=== PATIENT | male | born 1995 | race Caucasian/White ===

== ENCOUNTER 2020-04-14 10:14 | Inpatient (IN) | payer MEDICAID ==
[~2020-04-14] VITALS: Ht 172.7 cm; Wt 68.5 kg
[~2020-04-14 10:14] MED LIST: NOCURR
[2020-04-14] MEDS ORDERED: HALOPERIDOL 5 MG TABLET PO PRN (13:15)
[2020-04-14 14:35] VITALS: BP 128/65
[2020-04-14] MEDS: LORazepam 2 MG TABLET PO PRN (20:17)
[2020-04-14] MEDS: OLANZapine 10 MG TABLET PO SCH (20:17)
[2020-04-15 00:50] VITALS: BP 123/56
[2020-04-15 08:21] LABS: BASOPHILS % (AUTO) 0.8 % (0.0-2.0); EOSINOPHILS % (AUTO) 3.1 % (1.0-6.0); HEMATOCRIT 40.4 % (41-53); HEMOGLOBIN 13.5 g/dL (13.5-17.5); LYMPHOCYTES # (AUTO) 2.1 K/uL (1.0-4.8); MEAN CORPUSCULAR HEMOGLOBIN 30.3 pg (26.0-34.0); MEAN CORPUSCULAR HGB CONC 33.5 G/dL (31.0-37.0); MEAN CORPUSCULAR VOLUME 90 fL (80-100); MONOCYTES # (AUTO) 0.7 K/uL (0.1-1.0); MONOCYTES % (AUTO) 12.4 % (2.0-9.0); NEUTROPHILS # (AUTO) 2.6 K/uL (1.8-7.7); NEUTROPHILS % (AUTO) 45.7 % (40.0-70.0); PLATELET COUNT (AUTO) 286 K/uL (150-450); RED BLOOD CELL COUNT(AUTO) 4.47 MIL/uL (4.50-5.90)
[2020-04-15] MEDS ORDERED: ONDANSETRON HCL 4 MG TABLET PO PRN (08:30)
[2020-04-15] MEDS ORDERED: MAG HYDROX/AL HYDROX/SIMETH ES 30 ML SUSPENSION UDCUP PO PRN (08:30)
[2020-04-15] MEDS ORDERED: IBUPROFEN 400 MG TABLET PO PRN (08:30)
[2020-04-15] MEDS ORDERED: LOPERAMIDE HCL 2 MG CAPSULE PO PRN (08:30)
[2020-04-15] MEDS ORDERED: ACETAMINOPHEN 325 MG TABLET PO PRN (08:30)
[2020-04-15] MEDS ORDERED: DOCUSATE SODIUM 100 MG CAPSULE PO PRN (08:30)
[2020-04-15] MEDS ORDERED: ALBUTEROL SULFATE HFA 90 MCG/PUFF 8 GM INHALER IH PRN (08:30)
[2020-04-15] MEDS ORDERED: MAGNESIUM HYDROXIDE SUSPENSION 30 ML UDCUP PO PRN (08:30)
[2020-04-15] MEDS ORDERED: CloNIDine HCL 0.1 MG TABLET PO PRN (08:30)
[2020-04-15] MEDS ORDERED: PETROLATUM,WHITE 28 GM JELLY TP PRN (08:30)
[2020-04-15] MEDS ORDERED: NICOTINE 14 MG/24 HOUR PATCH TD PRN (08:30)
[2020-04-15] MEDS ORDERED: GuaiFENesin/D-METHORPHAN [SUGAR-FREE] 200-20MG/10 ML SYRUP UDCUP PO PRN (08:30)
[2020-04-15 08:31] LABS: HEMOGLOBIN A1C 5.3 % (3.8-5.6)
[2020-04-15 08:36] LABS: ALANINE AMINOTRANSFERASE 24 U/L (12-78); ALBUMIN 3.7 g/dL (3.4-5.0); ALKALINE PHOSPHATASE 55 U/L (46-116); ANION GAP 6 mmol/L (8-16); ASPARTATE AMINOTRANSFERASE 23 U/L (15-37); BILIRUBIN,TOTAL 0.3 mg/dL (0.1-1.0); CARBON DIOXIDE 29 mmol/L (22-29); CHLORIDE 103 mmol/L (98-107); CHOL/HDL RATIO 2.8 (4.2-7.3); CHOLESTEROL 154 mg/dL (131-200); CREATININE 1.01 mg/dL (0.60-1.30); GLOMERULAR FILTR. RATE CALC > 60 mL/min (>60); GLUCOSE,RANDOM 94 mg/dL (70-110); HDL CHOLESTEROL 55 mg/dL (40-60); LDL CHOL (CALC.) 87 mg/dL (0-130); SODIUM SERUM 138 mmol/L (136-145); TOTAL PROTEIN, SERUM 6.7 g/dL (6.4-8.2); TRIGLYCERIDES 58 mg/dL (15-150); UREA NITROGEN, BLOOD 17 mg/dL (7-18)
[2020-04-15 10:28] VITALS: BP 110/60
[2020-04-15] MEDS: OLANZapine 10 MG TABLET PO SCH (21:00)
[2020-04-16] MEDS: OLANZapine 10 MG TABLET PO SCH (20:30)
[2020-04-17 16:00] VITALS: BP 109/74
[2020-04-17] MEDS: OLANZapine 10 MG TABLET PO SCH (21:04)
[2020-04-17] MEDS: ZOLPIDEM TARTRATE 10 MG TABLET PO PRN (21:04)
[2020-04-18] MEDS: OLANZapine 10 MG TABLET PO SCH ×2 (20:36→20:54)
[2020-04-18] MEDS: ZOLPIDEM TARTRATE 10 MG TABLET PO PRN (20:47)
[2020-04-19 06:16] VITALS: BP 112/70
[2020-04-19 08:10] VITALS: BP 112/68
[2020-04-19 16:10] VITALS: BP 116/73
[2020-04-19] MEDS: OLANZapine 10 MG TABLET PO SCH (20:21)
[2020-04-20 00:03] VITALS: BP 110/65
[2020-04-20] MEDS: OLANZapine 10 MG TABLET PO SCH (21:00)
[2020-04-21 08:29] VITALS: BP 117/79
[2020-04-21] MEDS: OLANZapine 10 MG TABLET PO SCH (20:16)
[2020-04-22] MEDS: ZOLPIDEM TARTRATE 10 MG TABLET PO PRN (01:28)
[2020-04-22] MEDS: LORazepam 2 MG TABLET PO PRN (01:28)
[2020-04-22] MEDS: OLANZapine 10 MG TABLET PO SCH (20:26)
[2020-04-23 05:58] VITALS: BP 119/76
[2020-04-23 08:20] VITALS: BP 112/74
[2020-04-23 16:12] VITALS: BP 114/71
[2020-04-23] MEDS: OLANZapine 10 MG TABLET PO SCH (20:25)
[2020-04-23] MEDS: LORazepam 2 MG TABLET PO PRN (20:25)
[2020-04-24 06:28] VITALS: BP 125/70
[2020-04-24] MEDS: OLANZapine 10 MG TABLET PO SCH (20:21)
[2020-04-25 16:09] VITALS: BP 104/60
[2020-04-25] MEDS: OLANZapine 10 MG TABLET PO SCH (20:02)
[2020-04-26 01:06] VITALS: BP 104/67
[2020-04-26 08:18] VITALS: BP 112/81
[2020-04-26] MEDS: LORazepam 2 MG TABLET PO PRN (14:05)
[2020-04-26 16:07] VITALS: BP 110/63
[2020-04-26] MEDS: OLANZapine 10 MG TABLET PO SCH (21:00)
[2020-04-27 00:40] VITALS: BP 118/64
[2020-04-27] MEDS: OLANZapine 10 MG TABLET PO SCH (20:15)
[2020-04-28 00:18] VITALS: BP 105/53
[2020-04-28 08:26] VITALS: BP 102/53
[2020-04-28] MEDS ORDERED: OLAN10TA3 PO (09:52)
== END 2020-04-28 15:30 | disposition home or self-care (01) | DRG 750 ==
LOC: B2S 14:33
PROVIDERS: ADMIT Psychiatry & Neurology Child & Adolescent Psychiatry; ATTEND Psychiatry & Neurology Child & Adolescent Psychiatry
DX: F25.0 Schizoaffective disorder, bipolar type (principal); D64.9 Anemia, unspecified; F19.10 Other psychoactive substance abuse, uncomplicated; R10.13 Epigastric pain; Z71.51 Drug abuse counseling and surveillance of drug abuser; Z59.0 Homelessness; Z91.14 Patient's other noncompliance with medication regimen
CPT/HCPCS: 83036

== ENCOUNTER 2020-04-28 19:06 | Emergency (ER) | payer MEDICAID ==
[~2020-04-28] VITALS: Ht 177.8 cm; Wt 69.3 kg
[~2020-04-28 19:06] MED LIST changes: +OLAN10TA3 PO
[2020-04-28] MEDS ORDERED: OLANZapine 5 MG TABLET PO ONE (21:15)
[2020-04-28 21:57] LABS: BASOPHILS % (AUTO) 0.8 % (0.0-2.0); EOSINOPHILS % (AUTO) 1.9 % (1.0-6.0); HEMATOCRIT 41.1 % (41-53); HEMOGLOBIN 13.8 g/dL (13.5-17.5); LYMPHOCYTES # (AUTO) 2.9 K/uL (1.0-4.8); LYMPHOCYTES % (AUTO) 42.1 % (22.0-44.0); MEAN CORPUSCULAR HGB CONC 33.6 G/dL (31.0-37.0); MEAN CORPUSCULAR VOLUME 89 fL (80-100); MONOCYTES # (AUTO) 0.7 K/uL (0.1-1.0); MONOCYTES % (AUTO) 9.7 % (2.0-9.0); NEUTROPHILS # (AUTO) 3.1 K/uL (1.8-7.7); NEUTROPHILS % (AUTO) 45.5 % (40.0-70.0); PLATELET COUNT (AUTO) 257 K/uL (150-450); RED BLOOD CELL COUNT(AUTO) 4.61 MIL/uL (4.50-5.90); RED CELL DISTRIBUTION WIDTH 13.3 % (11.5-14.5)
[2020-04-28 22:09] LABS: ANION GAP 7 mmol/L (8-16); CALCIUM, TOTAL 8.9 mg/dL (8.8-10.5); CARBON DIOXIDE 31 mmol/L (22-29); CHLORIDE 103 mmol/L (98-107); CREATININE 1.02 mg/dL (0.60-1.30); GLOMERULAR FILTR. RATE CALC > 60 mL/min (>60); GLUCOSE,RANDOM 90 mg/dL (70-110); SODIUM SERUM 141 mmol/L (136-145); UREA NITROGEN, BLOOD 18 mg/dL (7-18)
[2020-04-28 22:12] LABS: ALANINE AMINOTRANSFERASE 20 U/L (12-78); ALBUMIN 3.9 g/dL (3.4-5.0); ALKALINE PHOSPHATASE 51 U/L (46-116); ASPARTATE AMINOTRANSFERASE 17 U/L (15-37); BILIRUBIN,TOTAL 0.3 mg/dL (0.1-1.0); TOTAL PROTEIN, SERUM 6.7 g/dL (6.4-8.2)
[2020-04-29 06:08] VITALS: BP 107/48
== END 2020-04-29 12:09 | disposition home or self-care (01) ==
LOC: EMS 19:10
DX: F25.9 Schizoaffective disorder, unspecified (principal); F41.9 Anxiety disorder, unspecified; F17.210 Nicotine dependence, cigarettes, uncomplicated; F32.9 Major depressive disorder, single episode, unspecified
CPT/HCPCS: 36415; 80053; 85025; 99284; 99406; G0480

== ENCOUNTER 2020-05-22 06:35 | Inpatient (IN) | payer MEDICAID ==
[~2020-05-22] VITALS: Ht 172.7 cm; Wt 64.1 kg
[~2020-05-22 06:35] MED LIST changes: -NOCURR
[2020-05-22] MEDS ORDERED: HALOPERIDOL LACTATE 5 MG/ML VIAL IM ONE (07:00)
[2020-05-22] MEDS ORDERED: DiphenhydrAMINE HCL 50 MG/ML VIAL IM ONE (07:00)
[2020-05-22] MEDS ORDERED: LORazepam 2 MG/ML VIAL IM ONE (07:00)
[2020-05-22 07:10] LABS: BASOPHILS % (AUTO) 0.7 % (0.0-2.0); HEMATOCRIT 39.2 % (41-53); HEMOGLOBIN 13.3 g/dL (13.5-17.5); LYMPHOCYTES # (AUTO) 1.5 K/uL (1.0-4.8); LYMPHOCYTES % (AUTO) 32.1 % (22.0-44.0); MEAN CORPUSCULAR HEMOGLOBIN 30.1 pg (26.0-34.0); MEAN CORPUSCULAR HGB CONC 33.9 G/dL (31.0-37.0); MEAN CORPUSCULAR VOLUME 89 fL (80-100); MONOCYTES # (AUTO) 0.5 K/uL (0.1-1.0); MONOCYTES % (AUTO) 11.2 % (2.0-9.0); NEUTROPHILS # (AUTO) 2.6 K/uL (1.8-7.7); PLATELET COUNT (AUTO) 318 K/uL (150-450); RED BLOOD CELL COUNT(AUTO) 4.42 MIL/uL (4.50-5.90); RED CELL DISTRIBUTION WIDTH 14.3 % (11.5-14.5)
[2020-05-22 07:18] LABS: ANION GAP 10 mmol/L (8-16); CALCIUM, TOTAL 9.4 mg/dL (8.8-10.5); CARBON DIOXIDE 27 mmol/L (22-29); CHLORIDE 103 mmol/L (98-107); CREATININE 0.99 mg/dL (0.60-1.30); GLOMERULAR FILTR. RATE CALC > 60 mL/min (>60); GLUCOSE,RANDOM 75 mg/dL (70-110); POTASSIUM 3.5 mmol/L (3.5-5.1); SODIUM SERUM 140 mmol/L (136-145); UREA NITROGEN, BLOOD 17 mg/dL (7-18)
[2020-05-22 07:25] LABS: ALANINE AMINOTRANSFERASE 96 U/L (12-78); ALBUMIN 3.9 g/dL (3.4-5.0); ALKALINE PHOSPHATASE 56 U/L (46-116); ASPARTATE AMINOTRANSFERASE 207 U/L (15-37); BILIRUBIN,TOTAL 0.8 mg/dL (0.1-1.0)
[2020-05-22] MEDS ORDERED: ZOLPIDEM TARTRATE 10 MG TABLET PO PRN (10:15)
[2020-05-22 10:36] LABS: SALICYLATE 0.4 mg/dL (2.8-20.0)
[2020-05-22 10:37] LABS: ACETAMINOPHEN < 2 mcg/mL (10-30)
[2020-05-22 12:21] LABS: COVID AG,FIA SOURCE NASOPHARYNGEAL
[2020-05-22] MEDS ORDERED: NICOTINE 14 MG/24 HOUR PATCH TD PRN (17:00)
[2020-05-22] MEDS ORDERED: CloNIDine HCL 0.1 MG TABLET PO PRN (17:00)
[2020-05-22] MEDS ORDERED: PETROLATUM,WHITE 28 GM JELLY TP PRN (17:00)
[2020-05-22] MEDS ORDERED: MAG HYDROX/AL HYDROX/SIMETH ES 30 ML SUSPENSION UDCUP PO PRN (17:00)
[2020-05-22] MEDS ORDERED: DOCUSATE SODIUM 100 MG CAPSULE PO PRN (17:00)
[2020-05-22] MEDS ORDERED: IBUPROFEN 400 MG TABLET PO PRN (17:00)
[2020-05-22] MEDS ORDERED: MAGNESIUM HYDROXIDE SUSPENSION 30 ML UDCUP PO PRN (17:00)
[2020-05-22] MEDS ORDERED: LOPERAMIDE HCL 2 MG CAPSULE PO PRN (17:00)
[2020-05-22] MEDS ORDERED: ACETAMINOPHEN 325 MG TABLET PO PRN (17:00)
[2020-05-22] MEDS ORDERED: ALBUTEROL SULFATE HFA 90 MCG/PUFF 8 GM INHALER IH PRN (17:00)
[2020-05-22] MEDS ORDERED: ONDANSETRON HCL 4 MG TABLET PO PRN (17:00)
[2020-05-22] MEDS ORDERED: GuaiFENesin/D-METHORPHAN [SUGAR-FREE] 200-20MG/10 ML SYRUP UDCUP PO PRN (17:00)
[2020-05-22] MEDS ORDERED: INFLUENZA VIRUS VACCINE QVS 2020-21 (6MO+)/PF 60 MCG/0.5 ML SYRINGE IM ONE (20:30)
[2020-05-23] MEDS: LORazepam 2 MG TABLET PO PRN (07:57)
[2020-05-23] MEDS: NICOTINE 7 MG/24 HOUR PATCH TD SCH (07:57)
[2020-05-23] MEDS: HALOPERIDOL 5 MG TABLET PO PRN (07:57)
[2020-05-23 08:00] VITALS: BP 115/75
[2020-05-23] MEDS ORDERED: HALOPERIDOL LACTATE 5 MG/ML VIAL IM ONE (10:30)
[2020-05-23] MEDS ORDERED: LORazepam 2 MG/ML VIAL IM ONE (10:30)
[2020-05-23] MEDS ORDERED: DiphenhydrAMINE HCL 50 MG/ML VIAL IM ONE (10:30)
[2020-05-23 16:01] VITALS: BP 118/68
[2020-05-23] MEDS: OLANZapine 10 MG TABLET PO SCH (20:05)
[2020-05-24 08:29] VITALS: BP 97/60
[2020-05-24] MEDS: NICOTINE 7 MG/24 HOUR PATCH TD SCH (08:32)
[2020-05-24] MEDS: LORazepam 2 MG TABLET PO PRN (08:32)
[2020-05-24] MEDS: OLANZapine 5 MG TABLET PO SCH (08:32)
[2020-05-24 16:49] VITALS: BP 113/79
[2020-05-24] MEDS: OLANZapine 10 MG TABLET PO SCH (20:10)
[2020-05-25 08:13] VITALS: BP 110/78
[2020-05-25] MEDS: OLANZapine 5 MG TABLET PO SCH (09:00)
[2020-05-25] MEDS: NICOTINE 7 MG/24 HOUR PATCH TD SCH (09:00)
[2020-05-25 16:02] VITALS: BP 111/73
[2020-05-25] MEDS: HALOPERIDOL 5 MG TABLET PO PRN (16:32)
[2020-05-25] MEDS: LORazepam 2 MG TABLET PO PRN (16:32)
[2020-05-25] MEDS: OLANZapine 10 MG TABLET PO SCH (20:25)
[2020-05-26 04:00] VITALS: BP 110/65
[2020-05-26 08:10] VITALS: BP 100/60
[2020-05-26] MEDS: OLANZapine 5 MG TABLET PO SCH (08:48)
[2020-05-26] MEDS: NICOTINE 7 MG/24 HOUR PATCH TD SCH (08:48)
[2020-05-26 16:03] VITALS: BP 111/68
[2020-05-26] MEDS: OLANZapine 10 MG TABLET PO SCH (20:22)
[2020-05-27 04:05] VITALS: BP 108/60
[2020-05-27 08:17] VITALS: BP 128/71
[2020-05-27] MEDS: OLANZapine 5 MG TABLET PO SCH ×2 (08:20→09:00)
[2020-05-27] MEDS: NICOTINE 7 MG/24 HOUR PATCH TD SCH (08:20)
[2020-05-27 16:07] VITALS: BP 122/76
[2020-05-27] MEDS: OLANZapine 10 MG TABLET PO SCH (20:42)
[2020-05-28 06:27] VITALS: BP 116/61
[2020-05-28 08:05] VITALS: BP 107/72
[2020-05-28] MEDS: OLANZapine 5 MG TABLET PO SCH (08:37)
[2020-05-28] MEDS: NICOTINE 7 MG/24 HOUR PATCH TD SCH (09:00)
[2020-05-28 16:03] VITALS: BP 105/71
[2020-05-28] MEDS: OLANZapine 10 MG TABLET PO SCH (21:09)
[2020-05-29 05:18] VITALS: BP 116/76
[2020-05-29] MEDS: OLANZapine 5 MG TABLET PO SCH (08:21)
[2020-05-29] MEDS: NICOTINE 7 MG/24 HOUR PATCH TD SCH (08:21)
[2020-05-29 08:25] VITALS: BP 110/64
[2020-05-29 16:05] VITALS: BP 112/72
[2020-05-29] MEDS: OLANZapine 10 MG TABLET PO SCH (20:45)
[2020-05-30 05:15] VITALS: BP 118/78
[2020-05-30 08:01] VITALS: BP 121/67
[2020-05-30] MEDS: OLANZapine 5 MG TABLET PO SCH (08:24)
[2020-05-30] MEDS: NICOTINE 7 MG/24 HOUR PATCH TD SCH (08:24)
[2020-05-30 16:02] VITALS: BP 100/69
[2020-05-30] MEDS: LORazepam 2 MG TABLET PO PRN (20:17)
[2020-05-30] MEDS: OLANZapine 10 MG TABLET PO SCH (20:17)
[2020-05-31 04:35] VITALS: BP 115/64
[2020-05-31] MEDS: NICOTINE 7 MG/24 HOUR PATCH TD SCH (08:10)
[2020-05-31] MEDS: OLANZapine 5 MG TABLET PO SCH (08:10)
[2020-05-31] MEDS: LORazepam 2 MG TABLET PO PRN (08:10)
[2020-05-31 08:18] VITALS: BP 108/65
[2020-05-31] MEDS ORDERED: OLAN5TAB2 PO (12:10)
== END 2020-05-31 14:47 | disposition home or self-care (01) | DRG 750 ==
LOC: EMS 06:36 → B3A 10:07
PROVIDERS: ADMIT Psychiatry & Neurology Child & Adolescent Psychiatry; ATTEND Psychiatry & Neurology Child & Adolescent Psychiatry
DX: F20.0 Paranoid schizophrenia (principal); D64.9 Anemia, unspecified; F10.10 Alcohol abuse, uncomplicated; F17.210 Nicotine dependence, cigarettes, uncomplicated; J45.909 Unspecified asthma, uncomplicated; F41.9 Anxiety disorder, unspecified; R00.0 Tachycardia, unspecified; Z20.828 Contact with and (suspected) exposure to other viral communicable diseases; F19.10 Other psychoactive substance abuse, uncomplicated; F99 Mental disorder, not otherwise specified; R45.850 Homicidal ideations; Z59.0 Homelessness; Z78.1 Physical restraint status; Z91.19 Patient's noncompliance with other medical treatment and regimen; Z28.21 Immunization not carried out because of patient refusal; Z79.899 Other long term (current) drug therapy
CPT/HCPCS: 87426; G0480; G0481; J1200; J1630; J2060

== ENCOUNTER 2020-08-31 11:34 | Inpatient (IN) | payer MEDICAID ==
[~2020-08-31] VITALS: Ht 175.3 cm; Wt 73.9 kg
[~2020-08-31 11:34] MED LIST changes: +OLAN5TAB2 PO
[2020-08-31] MEDS ORDERED: DiphenhydrAMINE HCL 50 MG/ML VIAL IM ONE (12:15)
[2020-08-31] MEDS ORDERED: LORazepam 2 MG/ML VIAL IM ONE (12:15)
[2020-08-31] MEDS ORDERED: HALOPERIDOL LACTATE 5 MG/ML VIAL IM ONE (12:15)
[2020-08-31 13:48] LABS: COVID AG,FIA SOURCE NASOPHARYNGEAL
[2020-08-31] MEDS ORDERED: LORazepam 2 MG TABLET PO PRN (14:45)
[2020-08-31] MEDS ORDERED: ZOLPIDEM TARTRATE 10 MG TABLET PO PRN ×2 (14:45→16:00)
[2020-08-31] MEDS ORDERED: HALOPERIDOL 5 MG TABLET PO PRN (14:45)
[2020-08-31] MEDS: OLANZapine 5 MG RAPDIS TABLET PO SCH (21:21)
[2020-09-01 01:34] VITALS: BP 135/85
[2020-09-01] MEDS ORDERED: INFLUENZA VIRUS VACCINE QVS 2020-21 (6MO+)/PF 60 MCG/0.5 ML SYRINGE IM ONE (01:45)
[2020-09-01] MEDS ORDERED: BACITRACIN 28 GM OINTMENT TP PRN (06:00)
[2020-09-01] MEDS ORDERED: IBUPROFEN 600 MG TABLET PO PRN (06:00)
[2020-09-01] MEDS ORDERED: DOCUSATE SODIUM 100 MG CAPSULE PO PRN (06:00)
[2020-09-01] MEDS ORDERED: LOPERAMIDE HCL 2 MG CAPSULE PO PRN (06:00)
[2020-09-01] MEDS ORDERED: ONDANSETRON HCL 4 MG TABLET PO PRN (06:00)
[2020-09-01] MEDS ORDERED: BENZOCAINE/MENTHOL LOZENGE PO PRN (06:00)
[2020-09-01] MEDS ORDERED: PETROLATUM,WHITE 28 GM JELLY TP PRN (06:00)
[2020-09-01] MEDS ORDERED: ALBUTEROL SULFATE HFA 90 MCG/PUFF 8 GM INHALER IH PRN (06:00)
[2020-09-01] MEDS ORDERED: MAGNESIUM HYDROXIDE SUSPENSION 30 ML UDCUP PO PRN (06:00)
[2020-09-01] MEDS ORDERED: ACETAMINOPHEN 325 MG TABLET PO PRN (06:00)
[2020-09-01] MEDS ORDERED: CloNIDine HCL 0.1 MG TABLET PO PRN (06:00)
[2020-09-01] MEDS ORDERED: OMEPRAZOLE 20 MG CAPSULE PO PRN (06:00)
[2020-09-01] MEDS ORDERED: MAG HYDROX/AL HYDROX/SIMETH ES 30 ML SUSPENSION UDCUP PO PRN (06:00)
[2020-09-01 16:00] VITALS: BP 123/89
[2020-09-01] MEDS: HALOPERIDOL 5 MG TABLET PO PRN (17:39)
[2020-09-01] MEDS: LORazepam 2 MG TABLET PO PRN (17:39)
[2020-09-01] MEDS ORDERED: ZOLPIDEM TARTRATE 10 MG TABLET PO PRN (19:15)
[2020-09-01] MEDS ORDERED: LORazepam 2 MG TABLET PO PRN (19:15)
[2020-09-01] MEDS ORDERED: HALOPERIDOL 5 MG TABLET PO PRN (19:15)
[2020-09-01] MEDS: OLANZapine 5 MG RAPDIS TABLET PO SCH (21:03)
[2020-09-02 08:00] VITALS: BP 129/88
[2020-09-02] MEDS: OLANZapine 5 MG RAPDIS TABLET PO SCH ×2 (08:40→20:11)
[2020-09-02 16:08] VITALS: BP 104/60
[2020-09-02] MEDS: HALOPERIDOL 5 MG TABLET PO PRN (16:08)
[2020-09-02] MEDS: LORazepam 2 MG TABLET PO PRN (16:08)
[2020-09-02 16:27] VITALS: BP 104/60
[2020-09-03 08:00] VITALS: BP 123/95
[2020-09-03] MEDS: OLANZapine 5 MG RAPDIS TABLET PO SCH ×2 (08:55→20:30)
[2020-09-03] MEDS: HALOPERIDOL 5 MG TABLET PO PRN ×2 (09:13→16:20)
[2020-09-03] MEDS: LORazepam 2 MG TABLET PO PRN ×2 (09:13→16:20)
[2020-09-03 16:00] VITALS: BP 123/81
[2020-09-04 08:00] VITALS: BP 109/68
[2020-09-04] MEDS: LORazepam 2 MG TABLET PO PRN ×2 (08:34→15:46)
[2020-09-04] MEDS: HALOPERIDOL 5 MG TABLET PO PRN ×2 (08:34→15:46)
[2020-09-04 16:00] VITALS: BP 104/59
[2020-09-04] MEDS: OLANZapine 5 MG RAPDIS TABLET PO SCH (20:14)
[2020-09-05 07:57] LABS: BASOPHILS % (AUTO) 2.9 % (0.0-2.0); HEMATOCRIT 46.5 % (41-53); HEMOGLOBIN 15.6 g/dL (13.5-17.5); LYMPHOCYTES # (AUTO) 2.3 K/uL (1.0-4.8); LYMPHOCYTES % (AUTO) 41.5 % (22.0-44.0); MEAN CORPUSCULAR HEMOGLOBIN 30.8 pg (26.0-34.0); MEAN CORPUSCULAR HGB CONC 33.5 G/dL (31.0-37.0); MEAN CORPUSCULAR VOLUME 92 fL (80-100); MONOCYTES # (AUTO) 0.6 K/uL (0.1-1.0); MONOCYTES % (AUTO) 10.8 % (2.0-9.0); NEUTROPHILS # (AUTO) 2.3 K/uL (1.8-7.7); NEUTROPHILS % (AUTO) 41.8 % (40.0-70.0); PLATELET COUNT (AUTO) 289 K/uL (150-450); RED BLOOD CELL COUNT(AUTO) 5.05 MIL/uL (4.50-5.90); RED CELL DISTRIBUTION WIDTH 13.2 % (11.5-14.5)
[2020-09-05] MEDS: LORazepam 2 MG TABLET PO PRN ×2 (07:57→13:13)
[2020-09-05] MEDS: HALOPERIDOL 5 MG TABLET PO PRN ×2 (07:58→13:14)
[2020-09-05 08:00] VITALS: BP 146/97
[2020-09-05 08:18] LABS: ALANINE AMINOTRANSFERASE 31 U/L (12-78); ALKALINE PHOSPHATASE 64 U/L (46-116); ANION GAP 5 mmol/L (8-16); ASPARTATE AMINOTRANSFERASE 26 U/L (15-37); BILIRUBIN,TOTAL 0.4 mg/dL (0.1-1.0); CALCIUM, TOTAL 9.2 mg/dL (8.8-10.5); CARBON DIOXIDE 32 mmol/L (22-29); CHLORIDE 107 mmol/L (98-107); CHOL/HDL RATIO 2.7 (4.2-7.3); CHOLESTEROL 172 mg/dL (131-200); CREATININE 1.12 mg/dL (0.60-1.30); GLOMERULAR FILTR. RATE CALC > 60 mL/min (>60); GLUCOSE,RANDOM 87 mg/dL (70-110); HDL CHOLESTEROL 63 mg/dL (40-60); LDL CHOL (CALC.) 98 mg/dL (0-130); POTASSIUM 5.1 mmol/L (3.5-5.1); SODIUM SERUM 144 mmol/L (136-145); TOTAL PROTEIN, SERUM 7.1 g/dL (6.4-8.2); TRIGLYCERIDES 53 mg/dL (15-150); UREA NITROGEN, BLOOD 19 mg/dL (7-18)
[2020-09-05 16:18] VITALS: BP 115/60
[2020-09-05] MEDS: OLANZapine 5 MG RAPDIS TABLET PO SCH (20:12)
[2020-09-06 08:06] VITALS: BP 119/60
[2020-09-06] MEDS: HALOPERIDOL 5 MG TABLET PO PRN ×2 (09:03→16:05)
[2020-09-06] MEDS: LORazepam 2 MG TABLET PO PRN ×2 (09:03→16:05)
[2020-09-06 12:31] LABS: COVID AG,FIA SOURCE NASOPHARYNGEAL
[2020-09-06 16:07] VITALS: BP 129/76
[2020-09-06] MEDS: OLANZapine 5 MG RAPDIS TABLET PO SCH (20:23)
[2020-09-07 08:00] VITALS: BP 108/70
[2020-09-07] MEDS: LORazepam 2 MG TABLET PO PRN ×3 (08:58→17:25)
[2020-09-07] MEDS: HALOPERIDOL 5 MG TABLET PO PRN ×3 (08:58→17:25)
[2020-09-07 16:00] VITALS: BP 98/57
[2020-09-07] MEDS: HALOPERIDOL 5 MG TABLET PO SCH (20:25)
[2020-09-08] MEDS: HALOPERIDOL 5 MG TABLET PO PRN ×2 (07:15→17:09)
[2020-09-08] MEDS: LORazepam 2 MG TABLET PO PRN ×2 (07:16→17:09)
[2020-09-08 16:11] VITALS: BP 110/69
[2020-09-08] MEDS: HALOPERIDOL 5 MG TABLET PO SCH (20:09)
[2020-09-09] MEDS: LORazepam 2 MG TABLET PO PRN (07:45)
[2020-09-09 08:11] VITALS: BP 152/80
[2020-09-09 17:48] VITALS: BP 119/81
[2020-09-09] MEDS: HALOPERIDOL 5 MG TABLET PO SCH (20:37)
[2020-09-10] MEDS: HALOPERIDOL 5 MG TABLET PO PRN ×2 (07:44→17:04)
[2020-09-10 08:41] VITALS: BP 111/78
[2020-09-10 16:05] VITALS: BP 129/83
[2020-09-10] MEDS: LORazepam 2 MG TABLET PO PRN (16:05)
[2020-09-10] MEDS: HALOPERIDOL 5 MG TABLET PO SCH (20:17)
[2020-09-11 08:00] VITALS: BP 113/71
[2020-09-11] MEDS: LORazepam 2 MG TABLET PO PRN (09:48)
[2020-09-11 16:12] VITALS: BP 133/91
[2020-09-11] MEDS: HALOPERIDOL 5 MG TABLET PO SCH (20:01)
[2020-09-12] MEDS: HALOPERIDOL 5 MG TABLET PO PRN (07:42)
[2020-09-12] MEDS: LORazepam 2 MG TABLET PO PRN (07:42)
[2020-09-12 08:00] VITALS: BP_SYST 115; BP_SYST 127; BP_DIAS 76; BP_DIAS 88
[2020-09-12 16:15] VITALS: BP 115/72
[2020-09-12] MEDS: HALOPERIDOL 5 MG TABLET PO SCH (20:48)
[2020-09-13] MEDS: HALOPERIDOL 5 MG TABLET PO PRN ×2 (07:58→13:09)
[2020-09-13] MEDS: LORazepam 2 MG TABLET PO PRN ×2 (07:58→13:09)
[2020-09-13 08:15] VITALS: BP 130/80
[2020-09-13 10:18] LABS: COVID AG,FIA SOURCE NASOPHARYNGEAL
[2020-09-13 16:06] VITALS: BP 123/92
[2020-09-13] MEDS: HALOPERIDOL 5 MG TABLET PO SCH (20:17)
[2020-09-14] MEDS: LORazepam 2 MG TABLET PO PRN (07:43)
[2020-09-14 08:10] VITALS: BP 112/51
[2020-09-14] MEDS: HALOPERIDOL 5 MG TABLET PO PRN (08:27)
[2020-09-14] MEDS ORDERED: HALOPERIDOL LACTATE 5 MG/ML VIAL ONE (10:53)
[2020-09-14] MEDS ORDERED: LORazepam 2 MG/ML VIAL ONE (10:53)
[2020-09-14] MEDS ORDERED: DiphenhydrAMINE HCL 50 MG/ML VIAL ONE (10:54)
[2020-09-14] MEDS ORDERED: HALOPERIDOL LACTATE 5 MG/ML VIAL IM ONE (11:00)
[2020-09-14] MEDS ORDERED: LORazepam 2 MG/ML VIAL IM ONE (11:00)
[2020-09-14] MEDS ORDERED: DiphenhydrAMINE HCL 50 MG/ML VIAL IM ONE (11:00)
[2020-09-14 16:00] VITALS: BP 104/75
[2020-09-14] MEDS: HALOPERIDOL 5 MG TABLET PO SCH (20:37)
[2020-09-15 08:18] VITALS: BP 126/79
[2020-09-15] MEDS: LORazepam 2 MG TABLET PO PRN ×2 (10:48→15:58)
[2020-09-15] MEDS: HALOPERIDOL 5 MG TABLET PO PRN ×2 (10:48→15:58)
[2020-09-15 16:22] VITALS: BP 122/72
[2020-09-15] MEDS: BENZTROPINE MESYLATE 1 MG TABLET PO SCH (16:30)
[2020-09-15] MEDS: HALOPERIDOL 5 MG TABLET PO SCH (20:18)
[2020-09-16 08:00] VITALS: BP 124/79
[2020-09-16] MEDS: HALOPERIDOL 5 MG TABLET PO PRN ×2 (08:31→14:52)
[2020-09-16] MEDS: BENZTROPINE MESYLATE 1 MG TABLET PO SCH ×2 (08:31→16:14)
[2020-09-16] MEDS: LORazepam 2 MG TABLET PO PRN ×2 (08:31→14:52)
[2020-09-16 16:05] VITALS: BP 100/65
[2020-09-16] MEDS: HALOPERIDOL 5 MG TABLET PO SCH (20:28)
[2020-09-17] MEDS: LORazepam 2 MG TABLET PO PRN (07:54)
[2020-09-17 08:00] VITALS: BP 132/90
[2020-09-17] MEDS: BENZTROPINE MESYLATE 1 MG TABLET PO SCH ×2 (08:10→16:10)
[2020-09-17 16:00] VITALS: BP 128/89
[2020-09-17] MEDS: HALOPERIDOL 5 MG TABLET PO SCH (20:20)
[2020-09-18 08:01] VITALS: BP 115/74
[2020-09-18] MEDS: BENZTROPINE MESYLATE 1 MG TABLET PO SCH ×2 (08:18→16:00)
[2020-09-18 16:00] VITALS: BP 97/72
[2020-09-18] MEDS: HALOPERIDOL 5 MG TABLET PO SCH (20:18)
[2020-09-19 08:05] VITALS: BP 110/67
[2020-09-19] MEDS: LORazepam 2 MG TABLET PO PRN (08:38)
[2020-09-19] MEDS: BENZTROPINE MESYLATE 1 MG TABLET PO SCH ×2 (08:38→15:58)
[2020-09-19] MEDS: HALOPERIDOL 5 MG TABLET PO PRN (08:38)
[2020-09-19 16:41] VITALS: BP 101/67
[2020-09-19] MEDS: HALOPERIDOL 5 MG TABLET PO SCH (20:28)
[2020-09-20 08:02] VITALS: BP 114/78
[2020-09-20 09:55] LABS: COVID AG,FIA SOURCE NASOPHARYNGEAL
[2020-09-20] MEDS: BENZTROPINE MESYLATE 1 MG TABLET PO SCH (10:07)
[2020-09-20] MEDS ORDERED: BENZ1TAB10 PO (14:03)
[2020-09-20] MEDS ORDERED: HALO5TAB2 PO (14:03)
== END 2020-09-20 14:45 | disposition home or self-care (01) | DRG 750 ==
LOC: EMS 11:44 → 3EC 15:22
PROVIDERS: ADMIT Psychiatry & Neurology Psychiatry; ATTEND Psychiatry & Neurology Psychiatry
DX: F20.9 Schizophrenia, unspecified (principal); Z20.822 Contact with and (suspected) exposure to COVID-19; F17.210 Nicotine dependence, cigarettes, uncomplicated; F41.9 Anxiety disorder, unspecified; K59.00 Constipation, unspecified; G47.00 Insomnia, unspecified; F19.10 Other psychoactive substance abuse, uncomplicated; F32.9 Major depressive disorder, single episode, unspecified; Z91.19 Patient's noncompliance with other medical treatment and regimen; Z59.0 Homelessness; Z71.51 Drug abuse counseling and surveillance of drug abuser
CPT/HCPCS: 87426; 99291; J1200; J1630; J2060; Q0162